=== PATIENT | female | born 1985 | race Hispanic/Latino ===

== ENCOUNTER → 2018-01-07 | Outpatient (CLI) | payer MEDICAID ==
[~2018-01-07] MED LIST: CETI10CA5 PO; CHOL100044 PO; DESV100T PO; DIPH25 PO; FLUT16H NASAL; IBUP-2070 PO; IOPAMIDOL-370 75 ML VIAL IV ONE; ISOVUE-370 50ML VIAL IV ONE; LEVO50TA11 PO; LORA10TA7 PO; NORG7TAB PO; RISP1TAB89 PO
== END | disposition home or self-care (01) ==
LOC: RAH 08:47
PROVIDERS: ATTEND Family Medicine
DX: R51 Headache (principal)
CPT/HCPCS: 70470; Q9967